=== PATIENT | female | born 1965 ===

== ENCOUNTER 2019-06-09 05:50 | Day surgery (SDC) | payer OTHER ==
[~2019-06-09 05:50] MED LIST: COZAAR50 MG PO; LANOXIN125 MCG PO; MICROZIDE12.5 MG PO; PEPCID AC10 MG PO
[2019-06-09] MEDS ORDERED: TYLENOL325 MG PO (08:49)
== END 2019-06-09 13:00 | disposition home or self-care (01) ==
LOC: CIR.AMB 05:50
DX: N95.0 Postmenopausal bleeding (principal)